=== PATIENT | female | born 1990 | race Caucasian/White ===

== ENCOUNTER 2023-07-07 21:19 | Emergency (ER) | payer OTHER ==
[~2023-07-07] VITALS: Ht 157.5 cm; Wt 102.5 kg
[2023-07-07 21:44] VITALS: BP 122/78; PULSE 84; RESP 16; TEMP 97.8; O2SAT 98
[2023-07-07 23:09] LABS: APPEARANCE,URINE SL CLOUDY (CLEAR); BILIRUBIN,URINE NEGATIVE (NEGATIVE); BLOOD, URINE 3+ (NEGATIVE); COLOR,URINE YELLOW (YELLOW); LEUKOCYTE ESTERASE ,URINE NEGATIVE (NEGATIVE); NITRITE, URINE NEGATIVE (NEGATIVE); PH,URINE 5.5 (5.0-9.0); PROTEIN,URINE NEGATIVE (NEGATIVE); UGLUCOSE NEGATIVE (NEGATIVE); UROBILINOGEN,URINE 0.2 EU/dL (0.2 - 1)
[2023-07-07 23:13] LABS: BACTERIA,URINE 10-30 (MOD) /HPF (None Seen); MUCUS,URINE 1+ /LPF (None Seen); RBC,URINE 20-50 /HPF (0-5); SQUAMOUS EPITHELIAL CELL,UR 0-3 (FEW) /LPF (0-3 (FEW)); WBC,URINE 0-5 /HPF (0-5)
[2023-07-07] MEDS ORDERED: CEPH-588 PO (23:31)
[2023-07-07] MEDS ORDERED: NAPR-54 PO (23:31)
== END 2023-07-07 23:35 | disposition home or self-care (01) ==
LOC: MED 21:19
DX: N21.1 Calculus in urethra (principal); Z79.899 Other long term (current) drug therapy
CPT/HCPCS: 81001; 81025; 87086; 99283